=== PATIENT | female | born 1955 | race Caucasian/White ===

== ENCOUNTER 2017-01-27 11:59 | Emergency (ER) | payer BC ==
[~2017-01-27] VITALS: Ht 172.7 cm; Wt 112.7 kg
[2017-01-27 12:05] VITALS: TEMP 97.9
[2017-01-27 12:28] VITALS: BP 157/98; PULSE 101
== END 2017-01-27 12:50 | disposition home or self-care (01) ==
LOC: COL.ER 11:59
DX: I47.1 Supraventricular tachycardia (principal)
CPT/HCPCS: J0153

== ENCOUNTER → 2017-07-21 | Outpatient (CLI) | payer BC | LOC: MC.RAD 06:58 | DX: Z12.31 Encounter for screening mammogram for malignant neoplasm of breast (principal) ==

== ENCOUNTER → 2017-08-20 | Outpatient (CLI) | payer OTHER | LOC: COL.RAD 08-07 11:15 | DX: E04.2 Nontoxic multinodular goiter (principal) ==

== ENCOUNTER 2017-10-21 10:28 | Day surgery (SDC) | payer OTHER ==
[~2017-10-21] VITALS: Ht 172.7 cm; Wt 115.9 kg
[2017-10-21] VITALS (11 sets, daily range): BP systolic 133–165; BP diastolic 63–84; PULSE 67–84; TEMP 97.7–98.5
[2017-10-22] VITALS: BP 130/59; PULSE 80; TEMP 97.5
[2017-10-22 04:08] VITALS: BP 125/59; PULSE 78; TEMP 97.8
[2017-10-22 10:18] VITALS: BP 149/70; PULSE 75; TEMP 97.5
[2017-10-22 13:10] VITALS: BP 147/72; PULSE 71; TEMP 97.7
== END 2017-10-22 17:08 ==
LOC: SDCO 10:28 → SURG 15:43 → SDCO 10-22 17:08
DX: D34 Benign neoplasm of thyroid gland (principal); E04.2 Nontoxic multinodular goiter; I34.1 Nonrheumatic mitral (valve) prolapse; Z80.6 Family history of leukemia
CPT/HCPCS: OP; J0360; J1100; J1885; J2270; J2405; J2704; J3010; J7120

== ENCOUNTER → 2018-03-23 | Outpatient (CLI) | payer OTHER | LOC: COL.RAD 07:10 | DX: K80.20 Calculus of gallbladder without cholecystitis without obstruction (principal); K76.0 Fatty (change of) liver, not elsewhere classified ==

== ENCOUNTER → 2018-08-06 | Outpatient (CLI) | payer BC | LOC: MC.RAD 15:55 | DX: Z12.31 Encounter for screening mammogram for malignant neoplasm of breast (principal) ==

== ENCOUNTER → 2019-07-27 | Outpatient (CLI) | payer BC | LOC: COL.RAD 07:58 | DX: Z01.812 Encounter for preprocedural laboratory examination (principal); I65.23 Occlusion and stenosis of bilateral carotid arteries | CPT/HCPCS: Q9967 ==

== ENCOUNTER → 2019-08-02 | Outpatient (CLI) | payer BC | LOC: COL.CARD 12:52 | DX: R00.2 Palpitations (principal) ==

== ENCOUNTER → 2019-09-09 | Outpatient (CLI) | payer BC | LOC: MC.RAD 09:27 | DX: Z12.31 Encounter for screening mammogram for malignant neoplasm of breast (principal) ==

== ENCOUNTER → 2020-09-11 | Outpatient (CLI) | payer BC | LOC: MC.RAD 07:00 | DX: Z12.31 Encounter for screening mammogram for malignant neoplasm of breast (principal) ==

== ENCOUNTER → 2021-09-27 | Outpatient (CLI) | payer BC | LOC: MC.RAD 06:53 | DX: Z12.31 Encounter for screening mammogram for malignant neoplasm of breast (principal) ==

== ENCOUNTER → 2022-10-23 | Outpatient (CLI) | payer BC | LOC: MC.RAD 06:54 | DX: Z12.31 Encounter for screening mammogram for malignant neoplasm of breast (principal) ==

== ENCOUNTER → 2023-10-27 | Outpatient (CLI) | payer BC | LOC: MC.RAD 07:00 | DX: Z12.31 Encounter for screening mammogram for malignant neoplasm of breast (principal) ==